=== PATIENT | male | born 1950 | race Caucasian/White ===

== ENCOUNTER 2020-11-08 07:28 | Day surgery (SDC) | payer OTHER ==
[2020-11-05 15:33] LABS: Basophils % 0.9 % (0-1.3); Hematocrit 41.3 % (39.6-49.0); Lymphocytes % 17.8 % (15.3-44.8); MPV 9.4 fL (7.6-11.3); RBC Red Blood Cell Count 4.43 M/uL (4.33-5.43)
[2020-11-05 15:36] LABS: Protime INR 1.06
[2020-11-05 15:40] LABS: Potassium 4.1 mmol/L (3.5-5.1)
--- NOTE | 2020-11-05 17:00 | RAD REPORT ---
EXAM DESCRIPTION: RAD - Chest Pa And Lat (2 Views) - 11/05/2020 4:45 pm CLINICAL HISTORY: preop Chest pain. COMPARISON: CHEST PA AND LAT 2 VIEW dated 03/06/2011 FINDINGS: The lungs are clear. The heart is normal in size. Sternotomy wires present. Pacemaker note d with multiple leads in place. IMPRESSION: No acute or concerning finding suspected.
--- OUTSIDE RECORDS SUMMARY | 2020-11-08 07:37 | XMS REPORT | Clinical Summary ---
:1950 Author Organization [facility] Address [address] [place] [address] Care Team Providers Name Role Phone Trey Nash MD Primary Care Provider Allergies No Known Active Allergies Medications Medication Sig Dispensed Refills Start Date End Date Status famotidine (PEPCID) 10 Take 10 mg by 0 Active MG tablet mouth daily. Active Problems Problem Noted Date Exhaustion of cardiac pacemaker battery 05/12/2020 Encounters Date Type Specialty Care Team Description 05/12/2020 Surgery Procedural William Cabrera EP REMOVE REPLA CE Cardiology MD Adeline PACEMAKER GENER ATOR [[id number] (CPT)] 05/12/2020 Hospital Encounter Procedural William Cabrera Atriovent ricular block, Cardiology MD Adeline complete (HCC) 05/12/2020 Travel 05/10/2020 Lab Lab William Cabrera Encounter for MD Adeline preprocedural cardiovascular examination (Pr imary Dx) 05/10/2020 Travel after 11/08/2019 Surgical History Surgery Date Site/Laterality Comments MITRAL VALVE REPAIR CARDIAC ELECTROPHYSIOLOGY 05/12/2020 N/A Proced ure: EP REMOVE PROCEDURE REPLACE PACEMAKE R GENERATOR; Surg fabián: William Cabrera Jr., MD; Location: [facility] Commercial [employer] Collection Officer Invasive Locatio n; Service: Cardiol ogy; Laterality: N/A; Medical devices from this surgery are in t he Implants section . Medical History Medical History Date Comments Bradycardic cardiac arrest (HCC) GERD (gastroesophageal reflux disease) Sleep apnea Social History Tobacco Use Types Packs/Day Years Used Date Never Smoker Smokeless Tobacco: Never Used Alcohol Use Drinks/Week oz/Week Comments Yes 1 Glasses of wine 1.0 occational Sex Assigned at Date Recorded Not on file Last Filed Vital Signs Vital Sign Reading Time Taken Comments Blood Pressure 110/62 05/12/2020 12:00 PM CDT Pulse 61 05/12/2020 12:00 PM CDT Temperature 36.4 C (97.6 F) 05/12/2020 9:45 AM CDT Respiratory Rate 21 05/12/2020 12:00 PM CDT Oxygen Saturation 96% 05/12/2020 12:00 PM CDT Inhaled Oxygen Concentration - - Weight 64 kg (141 lb) 05/12/2020 6:12 AM CDT Height 175.3 cm (5' 9") 05/12/2020 6:12 AM CDT Body Mass Index 20.82 05/12/2020 6:12 AM CDT Plan of Treatment Date Type Specialty Care Team Description 11/19/2020 Clinical Support Internal Medicine Health Maintenance Due Date Last Done Comments COVID-19 VACCINE (1 of 2) 1968 HEPATITIS C SCREENING 1970 COLONOSCOPY SCREENING 2002 SHINGLES VACCINES (#1) 2002 65+ PNEUMOCOCCAL VACCINE (1 of 1 - PPSV23) 2017 INFLUENZA VACCINE 05/01/2020 Implants Implanted Type Area Chief Of Party Device Shelf Model / Identifier Expiration Serial / Date Lot Allure Rf Cardiac Resynchronization Therapy Device - [id number] Cardi ac N/A: 09/30/2021 [id number] / Implanted: 05/12/2020 at [facility] (Quantity not on file) Pacemaker N/A [id number] / Generators [id number] Envlp Impl Crdvrtr Dfb Antbctrl Fully Resorb Lg Aigiss rx R - [id number] Cardiovascular N/A: [employer] [id number] / Implanted: 05/12/2020 at [facility] (Quantity not on file) Implants N/A / Procedures Procedure Name Priority Date/Time Associated Diagnosis Comme nts EP PPI GENERATOR Routine 05/12/2020 9:24 Atrioventricular blo ck, Results for this CHANGE AM CDT complete (HCC) procedure are in the results section. ECG PRE/POST OP STAT 05/12/2020 5:58 Results for this AM CDT procedure are i n the results section. COVID-19 QUALITATIVE Routine 05/10/2020 1:51 Encounter for Re sults for this PCR PM CDT preprocedural procedure are in cardiovascular the results examination section. ESTIMATED GFR Routine 05/10/2020 10:52 Results fo r this AM CDT procedure are i n the results section. MAGNESIUM LEVEL Routine 05/10/2020 10:52 Encounter for Results for this AM CDT preprocedural procedure are in cardiovascular the results examination section. HC COMPLETE BLD COUNT Routine 05/10/2020 10:52 Encounter for R esults for this W/AUTO DIFF AM CDT preprocedural procedure are in cardiovascular the results examination section. BASIC METABOLIC PANEL Routine 05/10/2020 10:52 Encounter for R esults for this AM CDT preprocedural procedure are in cardiovascular the results examination section. PARTIAL Routine 05/10/2020 10:52 Encounter for Results fo r this THROMBOPLASTIN TIME AM CDT preprocedural procedu re are in (PTT) cardiovascular the results examination section. PROTHROMBIN TIME WITH Routine 05/10/2020 10:52 Encounter for R esults for this INR AM CDT preprocedural procedure are in cardiovascular the results examination section. after 11/08/2019 Results Electrophysiology procedure (05/12/2020 9:24 AM CDT) Specimen Narrative Performed At This result has an attachment that is no t available. TITLE OF PROCEDURE: [facility] PRODUCTION SUPERINTENDENT HYDRO pacemaker generator change out. PREOPERATIVE DIAGNOSES: 1. Permanent pacemaker battery exhaustion. 2. Complete heart block. 3. Pacemaker dependency. POSTOPERATIVE DIAGNOSES: 1. Permanent pacemaker battery exhaustion. 2. Complete heart block. 3. Pacemaker dependency. PROCEDURES PERFORMED: 1. IV conscious sedation, duration 30 minutes under my supervision administered by a registered nurse monitoring blood pressure, vital signs, oxygen saturation. 2. PRODUCTION SUPERINTENDENT HYDRO pacemaker generator change out. BRIEF HISTORY AND CLINICAL BACKGROUND: This is a 69-year-old man who received his original pa cemaker in 2010 for intermittent complete heart block. At that time, he received an anticipated high frequency RV pacing. He received a cardiac resy nchronization pacemaker. The LV lead subsequently caused phrenic nerve stimulat ion and diaphragmatic stimulation at threshold hence it has been turned off. Though he is pacemaker dependent, his ejection fraction earlier this year was 55% to 60% as measured by his primary religion department chair, Dr. Lloyd Rudd. He come s now for generator change. PROCEDURE: The patient was taken to the EP laboratory in the fast ing, nonsedated, drug-free state. Informed consent was previously obtained and reconfirmed. Intravenous antibiotics were infused as appropriate. The patient was placed supine on the fluoroscopy table and the position of the R2 pads was verified. The preexisting device was interrogated and reprogramm ed as needed. The patient was prepped and draped in the usual sterile fashion. Fluoroscopy was performed to identify the location of the device and the leads r espective to one another and local anesthesia was achieved with 1% Xylocaine so lution. Thereafter, utilizing a sharp knife, cautery, and blun t dissection, the preexisting device was explanted. Scar tissue was re moved from the leads and the pocket was enlarged and revised as needed. The set screws were loosened and the leads were then t ested for chronic pacing and sensing thresholds. After these thresholds were judged to be acceptable, the pocket which was revised as needed, was visually, manually, and radiographically inspected to ensure there were no gau ze or sponges in the pocket. It was then washed with copious amounts of a ntibiotic-impregnated saline. Thereafter, the new device was connected to the leads and the set screws were tightened and the device was placed back i nto the pocket. The pocket was closed in layers using Vicryl. Thereafter , pipo and skin adhesive were used. COMPLICATIONS: None. FINDINGS: 1. The explanted generator is a [employer] mod el 3210, serial #[id number], date of insertion January 24, 2011. 2. The chronic right atrial lead is a [employer] 2088, serial #[id number], date of insertion January 24, 2011. Measured P-wave 2. 4 millivolt, pacing threshold 1 volt, impedance 390 ohms. 3. The right ventricular lead is a 2088, serial #[id number]. No intrinsic R waves, pacing threshold 1 volt at 0.5 milliseconds, im pedance 510 ohms. 4. The LV lead, which is left off is a [employer] juaquin 1258T, serial #[id number]. Thresholds were not obtained, impedance 740 ohms. 5. The new pacemaker generator is a [id number], serial # [id number]. 6. A [employer] Tyrx antibiotic pouch reference CMRM6 [id number], lot [id number] was utilized. ESTIMATED BLOOD LOSS: Less than 5 mL. CONCLUSIONS: Successful PRODUCTION SUPERINTENDENT HYDRO pacemaker generator change. RECOMMENDATIONS: Discharge to home in 1 to 2 hours or thereafter whenev er IV conscious sedation recovery criteria are met. Performing Organization Address [facility]/ZIP Code Phon e Number CUP[facility] [address] [place] [address] ECG Pre/Post Op (05/12/2020 5:58 AM CDT) Pathologist Sig nature Ventricular rate 60 [facility] Atrial rate 60 [facility] MA interval 154 [facility] QRSD interval 176 [facility] QT interval 464 [facility] QTC interval 464 [facility] P axis 1 111 [facility] QRS axis 1 -74 [facility] T wave axis 102 [facility] EKG impression AV dual-paced [facility]USE rhythm-Abnormal ECG-In automated comparison with ECG of 25-JAN-2011 10:09,-Previous ECG has undetermined rhythm, needs review- Specimen Narrative Performed At This result has an attachment that is no t available. Performing Organization Address [facility] Phon e Number [facility] MUSE [address] [place] [address] COVID-19 qualitative PCR (05/10/2020 1:51 PM CDT) Pathologist [facility] Interpretation Negative results do not prec lude 2019-nCoV infection and should not be used as the sole basis for treatment or other patient management decisions. Negative results must be combined with clinical observations, patient history, and epidemiological [place] information. [facility] COVID-19 qualitative Not-Detected Not-Detecte [place] PCR result d [facility] COVID-19 qualitative See link below for [place] PCR PDF Lab GNOSTICIST ReportComment: Case HOSPITAL Number: [id number] Specimen Nasopharyngeal swab Performing Organization Address [facility] Phon e Number [facility] DEPARTMENT OF PATHOLOGY AND [address] [place], [place] [address] GENOMIC MED[address]INE [address] [address] [facility] Estimated GFR (05/10/2020 10:52 AM CDT) Pathologist [facility] Estimated GFR 65 mL/min/1.73 [place] GNOSTICIST Comment: m2 HOSPITAL Catergory Units Interpretation G1 >=90 Normal or high G2 60-89 Mildly decreased G3a 45-59 Mildly to moderately decreas ed G3b 30-44 Moderately to severely decre ased G4 15-29 Severely decreased G5 <15 Kidney failure The eGFR was calculated using the Chronic Kidney Disea se Epidemiology Collaboration (CKD-EPI) equation. Interpretation is based on recommendations of the National Kidney Foundation-Kidney Disease Outcomes Dallin lity Initiative (NKF-KDOQI) published in 2014. Specimen Performing Organization Address [facility] Phon e Number [facility] DEPARTMENT OF PATHOLOGY AND [address] [place] [address] [phone] [address] Partial thromboplastin time, activated (05/10/2020 10:52 AM CDT) Pathologist [facility] PTT 29.8 23.0 - 36.0 [facility] [place] Comment: [facility] PTT therapeutic range for unfractionated heparin is 61.0-112.0 seconds which corresponds to Anti-Xa 0.3-0.7 U/ml. Specimen Blood Performing Organization Address [facility] Phon e Number [facility] DEPARTMENT OF PATHOLOGY AND [address] [place] [address] [phone] [address] Prothrombin time with INR (05/10/2020 10:52 AM CDT) Pathologist [facility] Prothrombin time 13.2 11.5 - 14.[address] [facility] INR 1.0 [place] Comment: GNOSTICIST The International Normalized Ratio (INR) is a therapeu [facility] HOSPITAL monitoring tool for patients who are stable on oral anticoagulant therapy. An INR of 2.0-3.0 is suggested for deep vein thrombosis/pulmonary embolism. Specimen Blood Performing Organization Address City/[facility] Phon e Number [facility] DEPARTMENT OF PATHOLOGY AND [address] [place] [address] [phone] [address] CBC with platelet and differential (05/10/2020 10:52 AM CDT) WBC 6.00 4.50 - 11.00 [facility] RBC 4.48 4.40 - 6.00 [facility] HGB 13.7 (L) 14.0 - 18.0 [facility] g/dL [facility] HCT 41.4 41.0 - 51.0 % [facility] MCV 92.4 82.0 - 100.0 [facility] MCH 30.6 27.0 - 34.0 pg [facility] MCHC 33.1 31.0 - 37.0 [facility] g/dL HOSPITAL RDW - SD 41.5 37.0 - 55.0 fL [facility] MPV 11.0 8.8 - 13.2 fL [facility] Platelet count 153 150 - 400 k/uL [facility] Nucleated RBC 0.00 /100 WBC [facility] Neutrophils 58.0 39.0 - 69.0 % [facility] Lymphocytes 22.0 (L) 25.0 - 45.0 % [facility] Monocytes 12.2 (H) 0.0 - 10.0 % [facility] Eosinophils 6.8 (H) 0.0 - 5.0 % [facility] Basophils 0.7 0.0 - 1.0 % [facility] Immature granulocytes 0.3Comment: 0.0 - 1.0 % [facility] "Immature HOSPITAL granulocytes" (promyelocytes , myelocytes, metamyelocytes ) Specimen Blood Performing Organization Address City/[facility] Phon e Number [facility] DEPARTMENT OF PATHOLOGY AND [address] [place] [address] [phone] [address] Magnesium level (05/10/2020 10:52 AM CDT) Pathologist Sig nature Magnesium 2.5 (H) 1.6 - 2.4 mg/dL [facility] L Specimen Blood Performing Organization Address City/[facility] Phon e Number [facility] DEPARTMENT OF PATHOLOGY AND [address] [place] [address] [phone] [address] Basic metabolic panel (05/10/2020 10:52 AM CDT) Pathologist Sig nature Sodium 144 135 - 148 mEq/L [facility] L Potassium 4.5 3.5 - 5.0 mEq/L [facility] Chloride 106 98 - 112 mEq/L [facility] CO2 26 24 - 31 mEq/L [facility] Anion gap 12@ANIO 7 - 15 mEq/L [facility] BUN 19 8 - 23 mg/dL [facility] Creatinine 1.16 0.70 - 1.20 mg/dL [facility] Glucose 80 65 - 99 mg/dL [facility] Calcium 9.5 8.8 - 10.2 mg/dL [facility] [place] Specimen Blood Performing Organization Address City/State/ZIP Code Phon e Number [facility] DEPARTMENT OF PATHOLOGY AND [address], [place] [address] GENOMIC MEDICINE [facility] [address] [place] [address] after 11/08/2019 Insurance Payer Benefit Plan / Subscriber ID Effective Dates Phone Addre ss Type Group MEDICARE MEDICARE PART A [id number] 2017-[place] Medicare AND B t AARP AARP SUPPLEMENT [id number] 2019-Present Commercial [phone] (Work) Advance Directives For more information, please contact: [phone] Type Date Recorded 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
--- OUTSIDE RECORDS SUMMARY | 2020-11-08 07:38 | XMS REPORT | Continuity of Care Document ---
:1950 Author Organization [facility] t Address [address] [place] [address] Care Team Providers Name Role Phone Trey Nash MD Primary Care Physician Rick NG Attending Clinician RICK Admitting Clinician Unavailable Payers Payer Name Policy Type Policy Effective Date Expiration Date Sour ce Number MEDICAREMEDICARE PART [id number] 2017 [place] AND 00:00:00 [place] [id number]/10/2016 [place] [id number] 2019 [place] [id number] 00:00:00 Met marily 2019-PresentComme rcial Problems Condition Condition Condition Status Onset Resolution Last Treating Co mments Source Name Details Category Date Date Treatment Clinician Date Exhaustion Exhaustion Disease Active [facility] cardiac 05-12 [facility] pacemaker pacemaker 00:00: st battery battery 00 Allergies, Adverse Reactions, Alerts This patient has no known allergies or adverse reactions. Social History Social Habit Start Date Stop Date Quantity Comments Source Sex Assigned At [facility] ethodi Tobacco use and 2020-05-14 2020-05-14 [facility]00 00:00:00 Alcohol intake 2020-05-14 2020-05-14 Current drinker of James Menon 00:00:00 00:00:00 alcohol (finding) Alcohol Comment 2020-05-12 2020-05-12 occational [facility] ethodist 00:00:00 00:00:00 Smoking Status Start Date Stop Date Source Never smoker Cortes [place] Medications Ordered Filled Start Stop Current Ordering Indication Dosage Frequency Signature Comments Components Source Medication Medication Date Date Medication? Clinician (SIG) Name Name famotidine Yes 10mg QD Take 10 mg [place] (PEPCID) 10 8-12 by mouth Meth korina MG tablet 12:32: daily. st 36 Vital Signs Vital Name Observation Time Observation Value Comments Source Systolic blood 2020-05-12 12:00:00 110 mm[Hg] Partht[place] n [facility] pressure Diastolic blood 2020-05-12 12:00:00 62 mm[Hg] Garrett on [facility] pressure Heart rate 2020-05-12 12:00:00 61 /min [place]es Menon Respiratory rate 2020-05-12 12:00:00 21 /min Parth Menon Oxygen saturation in 2020-05-12 12:00:00 96 /min Cortes Menon Arterial blood by Pulse oximetry Body temperature 2020-05-12 09:45:00 36.44 Sarah Parth Menon Body height 2020-05-12 06:12:00 175.3 cm Cortes Menon Body weight 2020-05-12 06:12:00 63.957 kg Cortes Menon BMI 2020-05-12 06:12:00 20.82 kg/m2 Cortes Menon Procedures Procedure Date / Time Performing Clinician Source Performed EP PPI GENERATOR CHANGE 2020-05-12 09:24:01 William Cabrera ECG PRE/POST OP 2020-05-12 05:58:32 William Cabrera COVID-19 QUALITATIVE PCR 2020-05-10 13:51:00 William Cabrera PROTHROMBIN TIME WITH INR 2020-05-10 10:52:00 William Cabrera PARTIAL THROMBOPLASTIN 2020-05-10 10:52:00 William Cabrera [facility] TIME (PTT) BASIC METABOLIC PANEL 2020-05-10 10:52:00 William Cabrera HC COMPLETE BLD COUNT 2020-05-10 10:52:00 William Cabrera W/AUTO DIFF MAGNESIUM LEVEL 2020-05-10 10:52:00 William Cabrera ESTIMATED GFR 2020-05-10 10:52:00 William Cabrera Plan of Care Planned Activity Planned Date Details Comments Source Future Scheduled 2020-05-01 INFLUENZA VACCINE [place] [facility] Test 00:00:00 [code = INFLUENZA VACCINE] Future Scheduled 2017 65+ PNEUMOCOCCAL [place] [facility] Test 00:00:00 VACCINE (1 of 1 - PPSV23) [code = 65+ PNEUMOCOCCAL VACCINE (1 of 1 - PPSV23)] Future Scheduled 2002 COLONOSCOPY SCREENING [facility] Test 00:00:00 [code = COLONOSCOPY SCREENING] Future Scheduled 2002 [facility]:00:00 [code = SHINGLES VACCINES (#1)] Future Scheduled 1970 Hepatitis C screening [facility] Test 00:00:00 (procedure) [code = 681467655] Future Scheduled 1968 COVID-19 VACCINE (1 of [place] [facility] Test 00:00:00 2) [code = COVID-19 VACCINE (1 of 2)] Encounters Start End Encounter Admission Attending Care Care Encounter Source Date/Time Date/Time Type Type Clinicians Facility Department ID 2020-05-12 2020-05-12 Outpatient [facility] [id number] 046 [place] 00:00:00 00:00:00 NADIM [address] 2020-05-10 2020-05-10 Outpatient [facility] [id number] 001 [place] 00:00:00 00:00:00 NADIM [address] Results Test Description Test Test Results Result Source Time Comments Comments Electrophysiology 2020-05 TITLE OF PROCEDURE:DONATION WORKER Cortes procedure -13 pacemaker generator change [facility] 19:02:2 out.PREOPERATIVE 4 DIAGNOSES:1. Permanent pacemaker battery exhaustion.2. Complete heart block.3. Pacemaker dependency.POSTOPERATIVE DIAGNOSES:1. Permanent pacemaker battery exhaustion.2. Complete heart block.3. Pacemaker dependency.PROCEDURES PERFORMED:1. IV conscious sedation, duration 30 minutes under my supervision administeredby a registered nurse monitoring blood pressure, vital signs, oxygen saturation.2. DONATION WORKER pacemaker generator change out.BRIEF HISTORY AND CLINICAL BACKGROUND:This is a 69-year-old man who received his original pacemaker in 2010 forintermittent complete heart block. At that time, he received an anticipatedhigh frequency RV pacing. He received a cardiac resynchronization pacemaker. The LV lead subsequently caused phrenic nerve stimulation and diaphragmaticstimulation at threshold hence it has been turned off. Though he is pacemakerdependent, his ejection fraction earlier this year was 55% to 60% as measured byhis primary lacquer sprayer, Dr. Lloyd Rudd. He comes now for generator change.PROCEDURE:The patient was taken to the EP laboratory in the fasting, nonsedated, drug-freestate. Informed consent was previously obtained and reconfirmed. Intravenousantibiotics were infused as appropriate. The patient was placed supine on thefluoroscopy table and the position of the R2 pads was verified.The preexisting device was interrogated and reprogrammed as needed. The patientwas prepped and draped in the usual sterile fashion. Fluoroscopy was performedto identify the location of the device and the leads respective to one anotherand local anesthesia was achieved with 1% Xylocaine solution.Thereafter, utilizing a sharp knife, cautery, and blunt dissection, thepreexisting device was explanted. Scar tissue was removed from the leads andthe pocket was enlarged and revised as needed.The set screws were loosened and the leads were then tested for chronic pacingand sensing thresholds. After these thresholds were judged to be acceptable,the pocket which was revised as needed, was visually, manually, andradiographically inspected to ensure there were no gauze or sponges in thepocket. It was then washed with copious amounts of antibiotic-impregnatedsali ne. Thereafter, the new device was connected to the leads and the setscrews were tightened and the device was placed back into the pocket. Thepocket was closed in layers using Vicryl. Thereafter, pipo and skin adhesivewere used.COMPLICATIONS:None.FI NDINGS:1. The explanted generator is a [employer] model 3210, serial #[id number],date of insertion January 24, 2011.2. The chronic right atrial lead is a [employer] 2088, serial #[id number],date of insertion January 24, 2011. Measured P-wave 2.4 millivolt, pacingthreshold 1 volt, impedance 390 ohms.3. The right ventricular lead is a 2088, serial #[id number]. No intrinsic Rwaves, pacing threshold 1 volt at 0.5 milliseconds, impedance 510 ohms.4. The LV lead, which is left off is a [employer] 1258T, serial#[id number]. Thresholds were not obtained, impedance 740 ohms.5. The new pacemaker generator is a [id number], serial #[id number]. A [employer] Tyrx antibiotic pouch reference [id number], lot [id number] wasutilized.ESTIMATED BLOOD LOSS:Less than 5 mL.CONCLUSIONS:Successful DONATION WORKER pacemaker generator change.RECOMMENDATIONS:Dis charge to home in 1 to 2 hours or thereafter whenever IV conscious sedationrecovery criteria are met. ECG Pre/Post Op 2020-05-12 21:23:02 Test Item Value Reference Range Interpretation Comme nts Ventricular rate (test code = 253) 60 Atrial rate (test code = 255) 60 AK interval (test code = 266) 154 QRSD interval (test code = 260) 176 QT interval (test code = 264) 464 QTC interval (test code = 265) 464 P axis 1 (test code = 267) 111 QRS axis 1 (test code = 268) -74 T wave axis (test code = 270) 102 EKG impression (test code = 273) AV dual-paced rhythm-Abnormal ECG- In automated comparison with ECG of 25-JAN-2011 10:09,-Previous ECG has undetermined rhythm, needs review- Cortes MenonCOVID-19 qualitative [id number] 17:40:19 Test Item Value Reference Range Interpretation Comments Interpretation (test Negative results do code = 4062317) not preclude 2019-nCoV infection and should not be used as the sole basis for treatment or other patient management decisions. Negative results must be combined with clinical observations, patient history, and epidemiological information. COVID-19 qualitative Not-Detected Not-Detected PCR result (test code = 26313-0) COVID-19 qualitative See link below for C ase Number: PCR (test code = PDF Lab Report [id number]) [facility] MethodistPartial thromboplastin time, [id number] 12:34:19 Test Item Value Reference Range Interpretation Comments PTT (test code = 29.8 23.0- 36.0 [place] [address]-4) unfractionated heparin is61.0-112.0 se conds which corresponds to Anti-Xa0.3-0.7 U/ml. [place] MethodistProthrombin time with [id number] 12:33:39 Test Item Value Reference Range Interpretation Comments Prothrombin time (test 13.2 11.5- 14.5 sec code = 5902-2) INR (test code = 1.0 The Interna tional 33536-0) Normalized Rati o (INR) is a therapeutic m onitoring tool for patien ts who are stable on oral anticoagulant t herapy. An INR of 2.0-3.0 is suggested for d eep vein thrombosis/pulm onary embolism. [place] MethodistBasic metabolic [id number] 12:18:04 Test Item Value Reference Range Interpretation Comments Sodium (test code = 2951-2) 144 135- 148 mEq/L Potassium (test code = 2823-3) 4.5 3.5- 5.0 mEq/L Chloride (test code = 2075-0) 106 98- 112 mEq/L CO2 (test code = 8-9) 26 24- 31 mEq/L Anion gap (test code = 73061-0) 12@ANIO 7- 15 mEq/L BUN (test code = 3094-0) 19 mg/dL 8-23 Creatinine (test code = 2160-0) 1.16 mg/dL 0.7-1.2 Glucose (test code = 2345-7) 80 mg/dL 65-99 Calcium (test code = 56565-4) 9.5 mg/dL 8.8-10.2 [place] MethodistMagnesium [id number] 12:18:04 Test Item Value Reference Range Interpretation Comments Magnesium (test code = 93607-1) 2.5 mg/dL 1.6-2.4 H Lab Interpretation (test code = Abnormal 35122-8) [place] MethodistEstimated [id number] 12:18:04 Test Item Value Reference Range Interpretation Comments Estimated GFR (test 65 mL/min/1.73 m2 [facility] or Units code = 5488) InterpretationG 1 >=90 Normal or highG2 60-89 Mildly fyksvknvpS7z 45-59 Mildly to mode rately qedydqwamD9e 30-44 Moderately to severely decreasedG4 15-29 Severely decre asedG5 <15 Kidn ey failureThe eGFR was calculated usin g the Chronic Kidney Disease Epidemiology Co llaboration (CKD-EPI) equat ion. Interpretation is based on recommendations of the National Kidney Foundation-Kidn ey Disease Outcomes Qualit y Initiative (NKF-KDOQI) pub lished in 2014. Cortes MenonCBC with platelet and [id number] 11:45:13 Test Item Value Reference Range Interpretation Comments WBC (test code = 59177-3) 6.00 4.50- 11.00 k/uL RBC (test code = 15140-9) 4.48 m/uL 4.4-6 HGB (test code = 718-7) 13.7 g/dL 14-18 L HCT (test code = 4544-3) 41.4 % 41-51 MCV (test code = 787-2) 92.4 fL 82-100 MCH (test code = 785-6) 30.6 pg 27-34 MCHC (test code = 786-4) 33.1 g/dL 31-37 RDW - SD (test code = 41.5 fL 37-55 88661-1) MPV (test code = 05794-8) 11.0 fL 8.8-13.2 Platelet count (test code 153 150- 400 k/uL = 16441-6) Nucleated RBC (test code 0.00 /100 WBC = 78756-8) Neutrophils (test code = 58.0 % 39-69 26627-9) Lymphocytes (test code = 22.0 % 25-45 L 64306-6) Monocytes (test code = 12.2 % 0-10 H 31975-4) Eosinophils (test code = 6.8 % 0-5 H 08120-5) Basophils (test code = 0.7 % 0-1 14224-5) Immature granulocytes 0.3 % 0-1 "Immat ure (test code = 16906-1) granul ocytes" (promyelocytes, myelocytes, metamyelocytes) Lab Interpretation (test Abnormal code = 10373-1) Cortes Menon
[2020-11-08] MEDS ORDERED: NA CHLORIDE 0.9% 500 ML ONE (07:54)
[2020-11-08] MEDS ORDERED: HEPA 1000U/500MLS 1,000 UNIT/500 ML BAG IV ONE (08:22)
[2020-11-08] MEDS ORDERED: LIDOCAINE 1% MPF 30 ML VIAL ONE (08:23)
[2020-11-08] MEDS ORDERED: MIDAZOLAM HCL 2 MG/2 ML INJ ONE ×2 (08:23→08:45)
[2020-11-08] MEDS ORDERED: ATROPINE SULF 1 MG/10 ML SYR IV ONE (08:23)
[2020-11-08] MEDS ORDERED: NA CHLORIDE 0.9% 0 ML ONE (08:23)
[2020-11-08] MEDS ORDERED: FENTANYL CITR 100 MCG/2 ML ONE (08:23)
--- NOTE | 2020-11-08 09:27 | OP ---
Surgeon: Lloyd Rudd MD Drywall Carrier: Michelle Royal. Reason For Admission: Abnormal stress test and atypical chest pain. Procedure Performed: Left heart catheterization, selective coronary arteriogram. History Of Present Illness: Mr. Pires is a 70-year-old male. He has had a history of mitral valv e repair, Monreal ring in the past. He has a history of a dual-chamber pacemaker with recent generator placement, atypical chest pain, abnormal stress test in the inferior territory. Procedure In Detail: Brought to the can labeler today as an outpatient, prepped and draped in routine s terile fashion, given Versed and fentanyl for sedation. Using the Seldinger technique, a 6-[place] sh eath was introduced in the right common femoral artery. Angiography there was normal. Angio-Seal wa s used to close the case. Renea catheter 3.5 left and JR4 were used to cannulate the left main and right main respectively. He was found to have perfectly normal coronaries, normal left main, normal LAD, normal circumflex, normal RCA. He was right dominant. The patient tolerated the procedure wel l. There were no complications. Blood loss was 5 cc. Total conscious sedation was 45 minutes. Postoperative Diagnosis: Positive stress test, normal coronaries, status post mitral valve repair, s tatus post pacemaker placement. Plan: To continue medical therapy. The patient will remain at bedrest for 2 hours in the hospital, then he will be discharged and see me in the office in 2 weeks. PORTER/DILLON Voice ID: [id number] Report ID: [id number]
[2020-11-08 09:47] VITALS: O2SAT 97
[2020-11-08 09:59] VITALS: TEMP 96.8
[2020-11-08 10:53] VITALS: BP 102/55
== END 2020-11-08 11:14 | disposition home or self-care (01) ==
LOC: CCL 07:28
DX: R94.39 Abnormal result of other cardiovascular function study (principal); Z95.0 Presence of cardiac pacemaker; R07.89 Other chest pain; Z20.822 Contact with and (suspected) exposure to COVID-19; I48.0 Paroxysmal atrial fibrillation; I49.3 Ventricular premature depolarization; I34.0 Nonrheumatic mitral (valve) insufficiency
CPT/HCPCS: 85025; 80048; 36415; 85610; 85730; 71046; 93454; U0002; C1893; C1760; J2250 ×2; J3010; J7040; J1644; J0583

== ENCOUNTER 2022-06-16 08:57 | Day surgery (SDC) | payer OTHER, MEDICARE ==
[2022-06-12 11:41] LABS: SARS-CoV-2 Antigen Rapid Res Negative (Negative)
--- NOTE | 2022-06-12 15:06 | EKG ---
Test Date: 2022-06-12 Test Time: 11:14:09 Instrumentation Fitter: DENYS MEASUREMENT RESULTS: Intervals: Rate: 70 TN: QRSD: 168 QT: 444 QTc: 479 Rosenberg: P: 93 TN: QRS: -77 T: 15 INTERPRETIVE STATEMENTS: Electronic ventricular pacemaker No previous ECG available for comparison Electronically Signed On 06-12-22 15:06:01 CDT by Arvin Mensah
[2022-06-16] MEDS ORDERED: OXYMETAZOLINE HCL 0.05% 15ML NAS ONE ×3 (09:23→11:57)
[2022-06-16] MEDS ORDERED: Ringers Lactate 1,000 ML IV ONE (09:23)
[2022-06-16] MEDS ORDERED: NA CHLORIDE 0.9% 500 ML ONE (11:49)
[2022-06-16] MEDS ORDERED: EPINEPHRINE/PF 1 MG/ML AMP ONE (11:57)
[2022-06-16] MEDS ORDERED: LIDOCAINE 1% W/EPI 1:100,000 10 ML VIAL ONE (11:58)
[2022-06-16] MEDS ORDERED: LIDOCAINE 1% MPF 5 ML VIAL ONE (12:02)
[2022-06-16] MEDS ORDERED: FENTANYL CITR 250 MCG/5 ML ONE (12:02)
[2022-06-16] MEDS ORDERED: MIDAZOLAM HCL 2 MG/2 ML INJ ONE (12:02)
[2022-06-16] MEDS ORDERED: NS 0.9% VIAL 10 ML ONE (12:02)
[2022-06-16] MEDS ORDERED: propofoL 200 MG/20 ML VIAL IV ONE (12:02)
[2022-06-16] MEDS ORDERED: VECURONIUM 10 MG/VIAL IV ONE (12:12)
[2022-06-16] MEDS ORDERED: LIDOCAINE JELLY 2%- 5 ML TUBE ONE (12:13)
[2022-06-16] MEDS ORDERED: KETOROLAC 30 MG/ML INJ ONE (12:28)
[2022-06-16] MEDS ORDERED: LIDOCAINE 1% W/EPI 1:100,000 10 ML VIAL IJ ONE ×2 (12:44)
[2022-06-16] MEDS ORDERED: NEOSTIGMINE 1 MG/ML -10 ML VIAL ONE (13:59)
[2022-06-16] MEDS ORDERED: GLYCOPYRROLATE 0.2 MG/ML SYR ONE (13:59)
--- NOTE | 2022-06-16 14:16 | P.OP ---
Boss Dyer: NONE,NONE Preoperative diagnosis: chronic frontal, ethmoid and maxillary sinusitis, nasal polyps Postoperative diagnosis: same Primary procedure: Nasal Endoscopy with right frontal sinusotomy Secondary procedure: Nasal Endoscopy with right anterior ethmoidectomy Other procedure(s): Nasal Endoscopy with bilateral maxillary antrostomy Anesthesia: general Estimated blood loss: 30ml Specimen: sinus nasal trimmings and left maxillary polyp Findings: left maxillary polyp, right polypoid edema of ethmoid/frontal recess Operative Technique: The patient was brought to the operating room. They were placed under general anesthesia via oral endotracheal tube. The head of bed was turned 90 degrees. The nasal hairs were trimmed. The nasal cavity was examined with the nasal speculum and headlight with the following findings: No significant abnormalities noted anteriorly. The nasal cavity was packed with Afrin-soaked pledgets in preparation for the procedure. The patient was draped in a standard fashion for nasal surgery. [Based on the surgical plan and preoperative findings, intraoperative CT navigation was required. The preoperative CT scan was loaded into the Noviis device. The registration dongle was applied with adhesive to the patient's forehead. The electromagnetic device was secured to the operating room bed and evaluation to limit interference was confirmed. The registration handpiece was used to perform patient registration in accordance with duct cleaner's instructions including tracing over the course of the external nose and bilateral forehead and cheeks. Accuracy of the registration was confirmed with akgbc-kt-opidb matching at the base of the columella, the radix, and the bilateral medial and lateral canthi. 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 Photo documentation was obtained. The nasopharyngeal diverticulum was gently suctioned and probed. A 45 degree through-cutting Blakesley and sphenoid punch was used to remove portions of the soft tissue creating the inferior and right coleman of the diverticulum. A small amount of bleeding ensued but was not severe or significant. The area of bleeding was controlled with application of Afrin soaked pledgets. A [place] was used to gently medialized the left middle turbinate. The uncinate process was removed using a backbiter and 90 degree Blakesley. The 0 degree endoscope was then exchanged for a 30 degree endoscope for better visualization. There appeared to be a band of tissue across the ostium creating a significant risk for mucus recirculation. The 90 degree Blakesley was used to grasp and remove this band of tissue. After removal, a 70 degree endoscope was used for better visualization of the sinus cavity. A large polyp versus cyst was noted along the floor of the sinus. A [place] was used to grasp and remove portions of the tissue. A portion of it was noted to be cystic with suctioning of some mucus after rupture. An additional portion appeared more polypoid. This was grasped and removed under endoscopic guidance and sent along with remaining sinonasal trimmings to pathology. After removal, the 70 degree endoscope was again used to visualize the region. A very small area of residual polypoid swelling was noted at what is presumed to be the attachment point of the polyp but due to its location, further removal was limited by instrumentation. An Afrin-soaked pledget was applied to the left middle meatus and attention was turned to the right side. A [place] was used to gently medialized the middle turbinate. A maxillary seeker was used to palpate the uncinate process. A backbiter and 90 degree Blakesley were used to remove the uncinate process. The precision pointer was used in order to confirm the location and limits of the ethmoid bulla. A straight curette was used to incise through the inferior and medial portions of the ethmoid bulla. Ethmoid partitions were then removed using a 45 degree Blakesley. Gentle dissection within the anterior ethmoid region was undertaken with removal of all visible bone fragments. The precision pointer was used to confirm the location and avoid injury to the lamina papyracea. The 30 and 70 degree scopes were then used to explore along the anterior skull base removing portions of bone within the frontal recess. During this exploration, it was noted that the precision pointer was no longer functioning. After brief troubleshooting, the curved large navigation suction was used to explore in the area of the frontal recess. This tip was felt to be too bulky to allow for precision location along with visualization with the endoscope and dissection. The navigating clamp was then applied to the narrow long angled suction and calibrated according to duct cleaner instructions. This was then used to help identify the frontal recess. The frontal recess was entered and gently dissected using the suction, 90 degree curette, and large and small 90 degree giraffe forceps. Portions of tissue and bone fragments were removed until the frontal recess was visible. Afrin-soaked pledgets were intermittently packed within this area to help control bleeding and maintain adequate visualization. The opening into the right maxillary sinus was diffusely enlarged with removal of additional bone and soft tissue along the anterior portion of the antrostomy. Once adequate opening had been made attention was turned back to the frontal recess. Packing was removed and the area appeared to be predominantly hemostatic. Using a 70 degree endoscope, the propel contour steroid eluding stent was placed into the frontal recess. A propel mini steroid eluding stent was placed within the ethmoid region. A Posisep resorbable nasal dressing was cut in half with a portion placed into the right and left middle meatus. Each portion was thoroughly irrigated and saturated with sterile saline. The nasopharyngeal diverticulum was again inspected with no evidence of active or persistent bleeding At the conclusion of the procedure, all pledget counts were confirmed correct. The patient was returned to care of anesthesia for awakening extubation in the operating room which proceeded without difficulty. The patient was transported to the recovery room and will be discharged home later today in the care of their family. The patient is given written and verbal instructions regarding the importance of saline irrigations and nasal precautions. We intend for the patient to resume his preoperative blood thinner on postoperative day 2. Complications: None Implants: right Propel contour to FR, right Propel mini to ethmoid, B Posisep dressin Transferred to: Recovery Room Condition: Good
[2022-06-16 14:56] VITALS: BP 132/70; TEMP 97; O2SAT 100
== END 2022-06-16 15:44 | disposition home or self-care (01) ==
LOC: OR 08:57
PROVIDERS: ATTEND Otolaryngology
PROC: 8E09XBZ Computer Assisted Procedure of Head and Neck Region (ICD-10-PCS; 2022-06-16)
PROC: 09BS8ZZ Excision of Right Frontal Sinus, Via Natural or Artificial Opening Endoscopic (ICD-10-PCS; principal; 2022-06-16 10:45)
DX: J32.1 Chronic frontal sinusitis (principal); J32.0 Chronic maxillary sinusitis; Z20.822 Contact with and (suspected) exposure to COVID-19; J32.2 Chronic ethmoidal sinusitis; J33.8 Other polyp of sinus
CPT/HCPCS: 93005; 36415; 88305; 87811; 31276; 31254; 31256; J2704; J2710; J0171; J2001; J2250; J3010; A4216; J7120; J7040

== ENCOUNTER 2022-06-16 21:23 | Emergency (ER) | payer OTHER, MEDICARE ==
--- OUTSIDE RECORDS SUMMARY | 2022-06-16 21:26 | XMS REPORT | Continuity of Care Document ---
:1950 Author Organization [facility] t Address [address] [place] [address] Care Team Providers Name Role Phone Rory Nash MD Primary Care Physician SHARLENE CONTRERAS Attending Clinician Unavailable NAN DOWNEY Attending Clinician Unavailable MD NAN DOWNEY Attending Clinician Unavailable NAN DOWNEY Admitting Clinician Unavailable MD NAN DOWNEY Admitting Clinician Unavailable Problems Condition Condition Condition Status Onset Resolution Last Treating Co mments Source Name Details Category Date Date Treatment Clinician Date Exhaustion Exhaustion Disease Active M [facility] of cardiac of cardiac 8-12 st pacemaker pacemaker 00:00: Hosp pravin battery battery 00 l Allergies, Adverse Reactions, Alerts This patient has no known allergies or adverse reactions. Social History Social Habit Start Date Stop Date Quantity Comments Source Alcohol intake 2020-05-14 2020-05-14 [facility] of [facility] 00:[facility]00:00 alcohol (finding) Hospita l Tobacco use and 2020-05-12 2020-05-12 Smokeless tobacco [facility] exposure 00:00:00 00:00:00 non-user Hospital Alcohol Comment 2020-05-12 2020-05-12 occational [facility] 00:00:00 00:00:00 Hospital Sex Assigned At [birth year] [facility] 00:00:00 00:00:00 Hospital Smoking Status Start Date Stop Date Source Never smoked tobacco [facility] Medications Ordered Filled Start Stop Current Ordering Indication Dosage Frequency Signature Comments Components Source Medication Medication Date Date Medication? Clinician (SIG) Name Name famotidine 2020-0 Yes 10mg QD Take 10 mg M ethodi (PEPCID) 10 8-[address] MG tablet 12:32: daily. Hospit a 36 l Immunizations Ordered Immunization Filled Immunization Date Status Commen ts Source Name Name KAMILAH COVID-19 MRNA 2020-12-10 Completed [facility] VACCINATION 00:00:00 Hospital PFIZER COVID-19 MRNA 2020-11-19 Completed [facility] VACCINATION 00:00:00 Hospital Procedures This patient has no known procedures. Plan of Care Planned Activity Planned Date Details Comments Source Future Scheduled 2022-05-30 HEPATITIS B VACCINES Met [facility] Test 15:29:52 (1 of 3 - 3-dose series) [code = HEPATITIS B VACCINES (1 of 3 - 3-dose series)] Future Scheduled 2022-05-30 Hepatitis C screening [facility] Test 15:29:52 (procedure) [code = 026618238] Future Scheduled 2022-05-30 COLONOSCOPY SCREENING [facility] Test 15:29:52 [code = COLONOSCOPY SCREENING] Future Scheduled 2022-05-30 SHINGLES VACCINES ([address] [facility] Test 15:29:52 of 2) [code = SHINGLES VACCINES (1 of 2)] Future Scheduled 2022-05-30 65+ [facility] Test 15:29:52 VACCINE (1 - PCV) [code = 65+ PNEUMOCOCCAL VACCINE (1 - PCV)] Future Scheduled 2022-05-30 COVID-19 VACCINE (3 - [facility] Test 15:29:52 Booster for Pfizer series) [code = COVID-19 VACCINE (3 - Booster for Pfizer series)] Future Scheduled 2022-05-30 INFLUENZA VACCINE Method [facility] Test 15:29:52 [code = INFLUENZA VACCINE] Encounters Start End Encounter Admission Attending Care Care Encounter Source Date/Time Date/Time Type Type Clinicians Facility Department ID 2020-12-10 2020-12-10 Outpatient BEN, [facility] [id number] [place] 00:00:00 00:00:00 SHARLENE [address] 2020-11-19 2020-11-19 Outpatient [facility] [id number] [place] 00:00:00 00:00:[address] 2020-05-12 2020-05-12 [facility] [id number] [place] 00:00:00 00:00:[address] NADIM [address] 2020-05-10 2020-05-10 Outpatient SHAYAN, [facility] [id number] [place] 00:00:00 00:00:[address] NADIM [address] Results Test Description Test Time Test Comments Results Result Comments Source SARS-CoV-2 (COVID-19) RNA [Presence] in Respiratory sp ecimen by 2020-05-10 17:39:28 SYED with probe detection Test Item Value Reference Range Interpretation Comme nts SARS-CoV-2 (COVID-19) RNA [Presence] in Respiratory Not detected No t-Detected specimen by SYED with probe detection (test code = 99451-8)
[2022-06-16 22:24] LABS: Absolute Lymphocytes (CBC) 0.9 K/uL (0.7-4.9); Hematocrit 39.3 % (39.6-49.0); Lymphocytes % 8.1 % (15.3-44.8); MCV 93.2 fL (80-100); MPV 8.8 fL (7.6-11.3); Protime INR 1.06; RBC Red Blood Cell Count 4.22 M/uL (4.33-5.43)
[2022-06-16] MEDS ORDERED: TRANEXAMIC ACID 1,000 MG/10 ML VIAL IV ONE (22:25)
[2022-06-16] MEDS ORDERED: NA CHLORIDE 0.9% 1,000 ML ONE (22:25)
[2022-06-16 22:38] LABS: Albumin 3.9 g/dL (3.4-5.0); Bilirubin Total 1.3 mg/dL (0.2-1.0); Potassium 4.7 mmol/L (3.5-5.1); Protein, Total 7.2 g/dL (6.4-8.2)
--- NOTE | 2022-06-16 23:16 | EDPHYS ---
Physician Documentation [facility] Name: Alejandro Pires Age: 71 yrs Sex: Male : 1950 Arrival Date: 06/16/2022 Time: 21:25 Bed 15 Private MD: Star Mendoza HPI: 06/16 23:10 This 71 yrs old Male presents to ER via Ambulatory with complaints of Post john Surgical Bleeding. 23:10 The patient presents with a nose bleed, that is apparently anterior, that is apparently john posterior, from both nares. Onset: The symptoms/episode began/occurred today. Modifying factors: The symptoms are alleviated by nothing. the symptoms are aggravated by nothing. Associated signs and symptoms: The patient has no apparent associated signs or symptoms. Severity of symptoms: At their worst the symptoms were mild in the emergency department the symptoms are unchanged. The patient has not experienced similar symptoms in the past. Historical: - Allergies: 22:24 No Known Allergies; ja4 - Immunization history:: Adult Immunizations up to date. - Family history:: not pertinent. ROS: 23:10 Constitutional: Negative for fever, chills, and weight loss, Eyes: Negative for injury, john pain, redness, and discharge, Neck: Negative for injury, pain, and swelling, Cardiovascular: Negative for chest pain, palpitations, and edema, Respiratory: Negative for shortness of breath, cough, wheezing, and pleuritic chest pain, Abdomen/GI: Negative for abdominal pain, nausea, vomiting, diarrhea, and constipation, Back: Negative for injury and pain, : Negative for injury, bleeding, discharge, and swelling, MS/Extremity: Negative for injury and deformity, Skin: Negative for injury, rash, and discoloration, Neuro: Negative for headache, weakness, numbness, tingling, and seizure, Psych: Negative for depression, anxiety, suicide ideation, homicidal ideation, and hallucinations, Allergy/Immunology: Negative for hives, rash, and allergies, Endocrine: Negative for neck swelling, polydipsia, polyuria, polyphagia, and marked weight changes, Hematologic/Lymphatic: Negative for swollen nodes, abnormal bleeding, and unusual bruising. 23:10 ENT: Positive for nose bleed. Exam: 23:10 Constitutional: This is a well developed, well nourished patient who is awake, alert, john and in no acute distress. Head/Face: Normocephalic, atraumatic. Eyes: Pupils equal round and reactive to light, extra-ocular motions intact. Lids and lashes normal. Conjunctiva and sclera are non-icteric and not injected. Cornea within normal limits. Periorbital areas with no swelling, redness, or edema. Neck: Trachea midline, no thyromegaly or masses palpated, and no cervical lymphadenopathy. Supple, full range of motion without nuchal rigidity, or vertebral point tenderness. No Meningismus. Chest/axilla: Normal chest wall appearance and motion. Nontender with no deformity. No lesions are appreciated. Cardiovascular: Regular rate and rhythm with a normal S1 and S2. No gallops, murmurs, or rubs. Normal PMI, no JVD. No pulse deficits. Respiratory: Lungs have equal breath sounds bilaterally, clear to auscultation and percussion. No rales, rhonchi or wheezes noted. No increased work of breathing, no retractions or nasal flaring. Abdomen/GI: Soft, non-tender, with normal bowel sounds. No distension or tympany. No guarding or rebound. No evidence of tenderness throughout. Back: No spinal tenderness. No costovertebral tenderness. Full range of motion. Male : Normal genitalia with no discharge or lesions. Skin: Warm, dry with normal turgor. Normal color with no rashes, no lesions, and no evidence of cellulitis. MS/ Extremity: Pulses equal, no cyanosis. Neurovascular intact. Full, normal range of motion. Neuro: Awake and alert, GCS 15, oriented to person, place, time, and situation. Cranial nerves II-XII grossly intact. Motor strength 5/5 in all extremities. Sensory grossly intact. Cerebellar exam normal. Normal gait. Psych: Awake, alert, with orientation to person, place and time. Behavior, mood, and affect are within normal limits. 23:10 ENT: Nose: bleeding, is noted from both nares, and is minimal. Vital Signs: 22:17 BP 141 / 75; Pulse Ox 100% on R/A; ja4 23:31 Pulse 60; Resp 16; Pulse Ox 100% ; ja4 MDM: 21:54 Patient medically screened. john 23:13 Differential diagnosis: spontaneous epistaxis. Data reviewed: vital signs, nurses john notes, lab test result(s). Data interpreted: lunchroom monitor: rate is 80 beats/min, rhythm is regular, Pulse oximetry: on room air is 100 %. Counseling: I had a detailed discussion with the patient and/or guardian regarding: the historical points, exam findings, and any diagnostic results supporting the discharge/admit diagnosis, lab results, the need for outpatient follow up, for definitive care, an ENT specialist. Physician consultation: Myrtle Hanley MD. 06/16 21:56 Order name: CBC with Diff; Complete Time: 23: [facility] 06/16 21:56 Order name: Comprehensive Metabolic Panel; Complete Time: 23: [facility] 06/16 21:56 Order name: PT-INR; Complete Time: 23: [facility] 06/16 21:56 Order name: Misc. Order: call dr hanley after txa onboard [facility] Administered Medications: 22:17 Drug: NS 0.9% 1000 ml Route: IV; Rate: 1 bolus; Site: right antecubital; ja4 23:32 Not Given (not neededd): Tranexamic Acid 1000 mg IV at per protocol once; administer at ja4 a rate not to exceed 100 mg per min Disposition Summary: 06/16/22 23:15 Discharge Ordered Location: Home john Problem: new john Symptoms: have improved john Condition: Stable john Diagnosis - Epistaxis john Followup: john - With: Private Physician - When: 2 - 3 days - Reason: Recheck today's complaints, Continuance of care, Re-evaluation by your physician Followup: john - With: Myrtle Hanley MD - When: 2 - 3 days - Reason: Recheck today's complaints, Re-evaluation by your physician Discharge Instructions: - Discharge Summary Sheet john - Nosebleed, Adult john - Nosebleed, Adult, [id number] john Forms: - Medication Reconciliation Form john - Thank You Letter john - Antibiotic Education john - Prescription Opioid Use john Signatures: Dispatcher [employer] Star Toney MD MD cha Allen, Jeremy, RN RN ja4
--- NOTE | 2022-06-16 23:16 | ER ---
Nurse's Notes [facility] Name: Alejandro Pires Age: 71 yrs Sex: Male : 1950 Arrival Date: 06/16/2022 Time: 21:25 Bed 15 Private MD: Diagnosis: Epistaxis Presentation: 06/16 22:23 Chief complaint: Patient states: post op bleeding from nose. Coronavirus screen: At ja4 this time, the client does not indicate any symptoms associated with coronavirus-19. Ebola Screen: No symptoms or risks identified at this time. Initial Sepsis Screen: Does the patient meet any 2 criteria? No. Patient's initial sepsis screen is negative. Risk Assessment: Do you want to hurt yourself or someone else? Patient reports no desire to harm self or others. Onset of symptoms was June 16, 2022. 22:23 Method Of Arrival: Ambulatory ja4 22:23 Acuity: INESSA 3 ja4 Triage Assessment: 22:25 General: Appears in no apparent distress. comfortable, slender. EENT: Nares with ja4 drainage noted with bleeding noted. Historical: - Allergies: 22:24 No Known Allergies; ja4 - Immunization history:: Adult Immunizations up to date. - Family history:: not pertinent. Screenin:17 Abuse screen: Denies threats or abuse. Nutritional screening: No deficits noted. ja4 Tuberculosis screening: No symptoms or risk factors identified. Fall Risk None identified. Assessment: 22:17 General: Appears in no apparent distress. comfortable, slender, Behavior is calm, ja4 cooperative, appropriate for age. Pain: Denies pain. EENT: Reports nasal discharge that is bloody. Vital Signs: 22:17 BP 141 / 75; Pulse Ox 100% on R/A; ja4 23:31 Pulse 60; Resp 16; Pulse Ox 100% ; ja4 ED Course: 21:25 Patient arrived in ED. bp1 21:54 Star Pires MD is Attending Physician. john 21:55 Shaggy Willis RN is Primary Nurse. ja4 22:17 Bed in low position. Call light in reach. Side rails up X 1. ja4 22:17 No provider procedures requiring assistance completed. Inserted saline lock: 20 gauge ja4 in right antecubital area, using aseptic technique. Blood collected. 22:24 Triage completed. ja4 23:15 Lange, Myrtle, MD is Referral Physician. [facility] 23:32 IV discontinued, intact, bleeding controlled, No redness/swelling at site. Pressure ja4 dressing applied. Administered Medications: 22:17 Drug: NS 0.9% 1000 ml Route: IV; Rate: 1 bolus; Site: right antecubital; ja4 23:32 Not Given (not neededd): Tranexamic Acid 1000 mg IV at per protocol once; administer at ja4 a rate not to exceed 100 mg per min Medication: 22:17 VIS not applicable for this client. ja4 Outcome: 23:15 Discharge ordered by . [facility] 23:32 Discharged to home ambulatory. ja4 23:32 Condition: good 23:32 Discharge instructions given to patient, Instructed on discharge instructions, follow up and referral plans. Demonstrated understanding of instructions, follow-up care. 23:33 Patient left the ED. ja4 Signatures: Star Pires MD MD cha Paniauga, Brittany bp1 Allen, Jeremy, RN RN ja4
--- NOTE | 2022-06-17 01:13 | CON ---
Date of Consultation: 06/16/2022 Reason For Consultation: Epistaxis. History Of Present Illness: Mr. Pires is a 71-year-old white male, who underwent functional endoscopic sinus surgery earlier today with me including bilateral maxillary antrostomy, right anterior ethmoidectomy, and right frontal sinusotomy, which overall was unremarkable. The patient was subsequently discharged from day surgery in the mid to late afternoon. The patient contacted the on-call physician at approximately 9 p.m. with concerns for nasal bleeding which seemed to come primarily from the right side of the nose coming out the front of the nose as well as running down the back of the throat. He did not have any significant pain. He had not restarted his blood thinners. He had tried some Afrin nasal spray without success. He felt the bleeding was not severe, but did seem to be a steady drip that had been going on for long enough that he was concerned. Based on the patient's report, I recommended he proceed to the emergency room given the time of day, though, that he could undergo medical evaluation. I spoke with the emergency room physician in regard to the patient pending arrival to the ER with suggestion for treatment with IV tranexamic acid. Past Medical History: Essentially unchanged from the patient's preoperative H and P which was completed within the last 24 hours. It is significant for history of atrial fibrillation and mitral valve repair with chronic anticoagulation including Xarelto which was held for the last 2 days in preparation for his surgery. Physical Examination: The patient is in no acute distress. He is alert and oriented. His head and face are normocephalic, atraumatic. His pupils are equal, round, reactive. His sclera are clear. Extraocular movements are intact. On examination, the patient has no active bleeding at the time of my exam, which occurred at approximately 10:15 p.m. He is dabbing the nose intermittently with scant amount of blood. On anterior rhinoscopy, there does appear to be the blood soaked packing. The anterior nasal cavity and nasal vestibule appear to be patent and open. The left nasal cavity appears open and clear from any significant clots or bleeding. The oropharynx has small amount of staining from bleeding, but no active blood or clots noted during exam. Postoperative bleeding following sinus surgery in the setting of atrial fibrillation and history of anticoagulation. At this point in time, the bleeding seems to have resolved spontaneously. The patient is receiving a bolus of IV fluid and laboratory studies including CBC and coagulation studies were ordered by the emergency room staff and the results are still pending. I conferred with the emergency room doctor, Dr. Rudd, the patient's computer technology trainer and the patient in regard to the findings and treatment options. Dr. Rudd consents to the use of tranexamic acid in medical necessary. Since the patient's bleeding is stop spontaneously, I recommend a short period of observation over the next hour or so. If the patient's laboratory studies are unremarkable and the bleeding does not resume, he can be discharged to home. Follow up with Dr. aLnge as previously scheduled. If the patient develops additional significant or prolonged bleeding, the emergency room will contact me for reassessment. The patient is agreeable with the above outlined plan. Care coordination in regard to discharge plan is made with the attending ER physician, Dr. Pires. If after discharge, the patient has recurrent bleeding, he is welcome to contact the on-call physician as needed. RENEE Voice ID: [id number] Report ID: [id number] MTDD
[2022-06-18 08:50] VITALS: BP 141/75; O2SAT 100
== END 2022-06-16 23:33 | disposition home or self-care (01) ==
LOC: ER 21:23
DX: R04.0 Epistaxis (principal); Z98.890 Other specified postprocedural states
CPT/HCPCS: 85025; 36415; 85610; 80053; 99283; J7030